=== PATIENT | female | born 1955 | race American Indian/Alaskan Native ===

== ENCOUNTER 2017-10-29 20:20 | Emergency (ER) | payer OTHER ==
[2017-10-29 20:31] VITALS: TEMP 97.9; O2SAT 99
--- NOTE | 2017-10-29 21:23 | ED PDOC ---
Lower Extremity Pain/Injury Time Seen by Provider: 10/29/17 20:39 Chief Complaint (Nursing): Lower Extremity Problem/Injury Chief Complaint (Provider): Lower Extremity Problem/Injury History Per: Patient History/Exam Limitations: no limitations Onset/Duration Of Symptoms: Days (x3) Current Symptoms Are (Timing): Still Present Additional Complaint(s): Fred Kraft is a 62 year old female with no past medical history who is presenting to the ER with complaints of right ankle pain radiating to her calf, onset 3 days ago. Patient states that it hurts only when bearing weight and walking. She recalls that one week prior to onset of symptoms, she was walking and slightly twisted her ankle, but noted no pain at the time. Patient denies any swelling, fever, trauma, injury, chest pain, shortness of breath, or recent travel. PMD: Nasir Andres V Past Medical History Reviewed: Historical Data, Nursing Documentation, Vital Signs Vital Signs: Last Vital Signs Temp 97.9 F 10/29/17 20:26 Pulse 110 H 10/29/17 20:26 Resp 18 10/29/17 20:26 BP 165/92 H 10/29/17 20:26 Pulse Ox 99 10/29/17 20:26 - Medical History PMH: No Chronic Diseases - Surgical History Surgical History: No Surg Hx - Family History Family History: States: Unknown Family Hx - Social History Current smoker - smoking cessation education provided: No - Allergies Allergies/Adverse Reactions: Allergies Allergy/AdvReac Type Severity Reaction Status Date / Time No Known Allergies Allergy Verified 10/29/17 20:25 Review of Systems ROS Statement: Except As Marked, All Systems Reviewed And Found Negative Constitutional: Negative for: Fever, Other (trauma, injury, recent travel) Cardiovascular: Negative for: Chest Pain Respiratory: Negative for: Shortness of Breath Musculoskeletal: Positive for: Leg Pain (ankle and calf) Physical Exam - Reviewed Nursing Documentation Reviewed: Yes Vital Signs Reviewed: Yes - Physical Exam Comments: GENERAL APPEARANCE: Patient is awake, alert, oriented x 3, in no acute distress. SKIN: Warm, dry; (-) cyanosis. LUNGS : Clear to auscultation, (-) wheezing / rhonchi / rales. CARDIAC: RRR, (-) murmurs. LOWER EXTREMITY: (-) calf tenderness, (-) edema of the lower extremities. Ankle : (-) swelling, (-) tenderness (+) full range of motion. Achilles tendon intact and nontender. Knee and foot: (-) injury. CARDIOVASCULAR: (+) distal pulse. NEUROLOGIC: (+) distal sensation. - ECG O2 Sat by Pulse Oximetry: 99 (RA) Pulse Ox Interpretation: Normal Medical Decision Making Medical Decision Making: Time: 21:14 Plan: X-Ray Right Ankle Provider will consult podiatry. XR right ankle: Noted soft tissue swelling to the posterior aspect of the ankle , as well as heel spurs noted, no fracture, no dislocation, as read by PA Patient advised that official radiology read of XR is still pending and will call the patient if there is any discrepancy within 24 hours. X-ray results discussed the patient in great detail. Case discussed podiatry resident Dr. Lisbeth Pedraza, she recommends further outpatient follow-up with the podiatry clinic here at [place] tomorrow morning for further evaluation. Otherwise she recommends a Casanova dressing at this time and to instruct patient to rest, ice and elevate. Patient also instructed to take [id number] NSAIDs for pain. Casaonva dressing applied to the right ankle by PA. Advised to follow up with podiatry clinic tomorrow without fail. Return to the emergency room at any time for any new or worsening symptoms. Patient states she fully agrees with and understands discharge instructions. States that she agrees with the plan and disposition. Verbalized and repeated discharge instructions and plan. I have given the patient opportunity to ask any additional questions. Scribe Attestation: Documented by Li Alexandre, acting as a scribe for Olivia Voss PA-C. Provider Scribe Attestation: All medical record entries made by the Scribe were at my direction and personally dictated by me. I have reviewed the chart and agree that the record accurately reflects my personal performance of the history, physical exam, medical decision making, and the department course for this patient. I have also personally directed, reviewed, and agree with the discharge instructions and disposition. Disposition - Clinical Impression Clinical Impression: Ankle pain - Patient ED Disposition Is Patient to be Admitted: No Counseled Patient/Family Regarding: Studies Performed, Diagnosis, Need For Followup, Rx Given - Disposition Referrals: Podiatry Clinic [Outside] Disposition: Routine/Home Disposition Time: 22:00 Condition: STABLE Additional Instructions: Thank you for letting us take care of you today. You were treated for ankle pain. The emergency medical care you received today was directed at your acute symptoms. Rest, ice, elevate. Cold. Take [id number] Aleve or Motrin as needed for pain. It may take several days for your symptoms to resolve. Return to the Emergency Department if your symptoms worsen, do not improve, or if you have any other problems. Please follow-up with the podiatry clinic here in [place] tomorrow morning without fail for further evaluation. Bring any paperwork you were given at discharge with you along with any medications you are taking to your follow up visit. Our treatment cannot replace ongoing medical care by a primary care provider (PCP) outside of the emergency department. Thank you for allowing the [facility] team to be part of your care today. If you had an X-Ray: A Radiologist will review the ED reading if any change in treatment is needed we will contact you. Instructions: Ankle Sprain (DC) Forms: [employer] [facility] ([place]) - PA / [employer] C[employer]IAN / Resident Statement MD/DO has reviewed & agrees with the documentation as recorded.
[2017-10-29 22:10] VITALS: BP 140/77; PULSE 101; RESP 17
--- NOTE | 2017-10-30 07:57 | RAD ---
PROCEDURE: Right Ankle Radiographs. HISTORY: pain COMPARISON: None FINDINGS: BONES: No acute fracture or destructive bony lesion identified. JOINTS: Ankle mortise maintained. Talar dome intact SOFT TISSUES: Vascular calcifications noted anteriorly. OTHER FINDINGS: Large plantar calcaneal spurs identified. IMPRESSION: No acute fracture dislocation left ankle. Incidental note is made of a large plantar calcaneal spur as well as anterior soft tissue vascular calcifications
== END 2017-10-29 22:10 | disposition home or self-care (01) ==
LOC: H.ER 20:20
DX: S93.401A Sprain of unspecified ligament of right ankle, initial encounter (principal); Y92.89 Other specified places as the place of occurrence of the external cause; M77.31 Calcaneal spur, right foot